=== PATIENT | male | born 1985 | race Two or more races ===

== ENCOUNTER 2022-03-17 04:25 | Emergency (ER) | payer SELFPAY ==
[~2022-03-17] VITALS: Ht 185.4 cm; Wt 112.0 kg
[2022-03-17 04:33] VITALS: BP 136/94
== END 2022-03-17 08:36 | disposition left against medical advice (07) ==
LOC: ER 04:25
DX: Z53.21 Procedure and treatment not carried out due to patient leaving prior to being seen by health care provider (principal)